=== PATIENT | female | born 1990 | race American Indian/Alaskan Native ===

== ENCOUNTER 2016-10-19 05:36 | Emergency (ER) | payer MEDICARE ==
[2016-10-19 10:13] LABS: Basophils % (Auto) 0.6 % (0.0-1.8); Eosinophils % (Auto) 2.4 % (0.0-4.3); Hematocrit 40.4 % (30.3-42.9); Hemoglobin 13.5 gm/dl (10.1-14.3); Mean Corpuscular HGB Conc 34 % (30-34); Mean Corpuscular Hemoglobin 28 pg (28-32); Mean Corpuscular Volume 82 fl (79-97); Platelet Count 264 K/mm3 (140-440); Red Blood Count 4.91 M/mm3 (3.65-5.03); Red Cell Distribution Width 13.5 % (13.2-15.2); White Blood Count 7.1 K/mm3 (4.5-11.0)
[2016-10-19 10:20] LABS: Bilirubin,Urine NEG (Negative); Blood,Urine LG (Negative); Ketones,Urine 20 mg/dL (Negative); Leukocyte Esterase,Urine NEG (Negative); Mucus,Urine FEW /HPF; Nitrite,Urine NEG (Negative); Protein,Urine <15 mg/dL mg/dL (Negative); WBC,Urine < 1.0 /HPF (0.0-6.0)
[2016-10-19 10:42] LABS: Alanine Aminotransferase 11 units/L (7-56); Albumin/Globulin Ratio 1.1 %; Alkaline Phosphatase 75 units/L (35-129); Amylase 60 units/L (27-131); Anion Gap 17 mmol/L; BUN/Creatinine Ratio 11.66; Bilirubin,Total 0.5 mg/dL (0.1-1.2); Blood Urea Nitrogen 7 mg/dL (7-17); Carbon Dioxide 25 mmol/L (22-30); Chloride 98.7 mmol/L (98-107); Glucose 97 mg/dL (65-100); Lipase 21 units/L (13-60); Sodium 137 mmol/L (137-145); Total Protein 7.8 g/dL (6.3-8.2)
[2016-10-19 10:46] LABS: Bilirubin,Direct < 0.2 mg/dL (0-0.2); Bilirubin,Indirect 0.3 mg/dL
--- NOTE | 2016-10-19 10:50 | Ultrasound Report ---
Sonogram right upper quadrant: History: Right upper quadrant pain. Findings Aortic diameter 1.3 cm. No aneurysm. Normal liver. Normal gallbladder. Gallbladder wall thickness 1.2 mm. Common bile duct diameter 4.5 mm. No intrahepatic duct dilatation. Right kidney 10.1 x 3.8 x 4.8 cm. Cortical thickness 1 cm. Left kidney 10.8 x 4.9 x 5.2 cm. Cortical thickness 1.8 cm. Spleen 8.4 cm. Pancreas not visualized. Impression: Essentially negative sonogram right upper quadrant
--- NOTE | 2016-10-19 11:35 | XRay Report ---
Chest 2 views: History: Chest pain. Findings: Normal cardiomediastinal silhouette. Trachea is midline. No consolidation, pneumothorax or pleural effusion. Impression: No acute cardiopulmonary findings.
[2016-10-19] MEDS ORDERED: XYLOCAINE 1% MPF 5 mL INFILTRATI ONE (12:01)
[2016-10-19] MEDS ORDERED: ROCEPHIN IM ONE (12:01)
--- NOTE | 2016-10-19 12:06 | Emergency Department Report ---
ED Abdominal Pain HPI - General Chief Complaint: Pain General Stated Complaint: LUNG PAIN Time Seen by Provider: 10/19/16 09:05 Source: patient Mode of arrival: Ambulatory Limitations: No Limitations - History of Present Illness Severity scale (0 -10): 9 - Related Data Previous Rx's Medication Instructions Recorded Last Taken Type Doxycycline [Vibramycin CAP] 100 mg PO Q12HR #28 capsule 10/19/16 Unknown Rx Famotidine [Pepcid] 20 mg PO BID #60 tablet 10/19/16 Unknown Rx Allergies Allergy/AdvReac Type Severity Reaction Status Date / Time No Known Allergies Allergy Unverified 10/19/16 05:42 ED Review of Systems ROS: Stated complaint: LUNG PAIN Other details as noted in HPI ED Past Medical Hx - Past Medical History Previous Medical History?: No - Surgical History Past Surgical History?: No - Social History Smoking Status: Current Every Day Smoker Substance Use Type: None - Medications Home Medications: Home Medications Medication Instructions Recorded Confirmed Last Taken Type Doxycycline [Vibramycin CAP] 100 mg PO Q12HR #28 capsule 10/19/16 Unknown Rx Famotidine [Pepcid] 20 mg PO BID #60 tablet 10/19/16 Unknown Rx ED Physical Exam - General Limitations: No Limitations ED Course Vital Signs 10/19/16 10/19/16 05:42 09:47 Temperature 97.9 F 98.1 F Pulse Rate 70 79 Respiratory 18 18 Rate Blood Pressure 127/86 Blood Pressure 135/97 [Left] O2 Sat by Pulse 99 100 Oximetry ED Medical Decision Making - Lab Data Result diagrams: 10/19/16 09:45 10/19/16 09:45 Critical care attestation.: If time is entered above; I have spent that time in minutes in the direct care of this critically ill patient, excluding procedure time. ED Disposition Clinical Impression: Abdominal pain Qualifiers: Abdominal location: right upper quadrant Qualified Code(s): R10.11 - Right upper quadrant pain Disposition: DISCHARGED TO HOME OR SELFCARE Is pt being admited?: No Does the pt Need Aspirin: No Condition: Stable Instructions: Pelvic Inflammatory Disease (ED), Abdominal Pain (ED), Acute Abdominal Pain (ED), Gas and Bloating (ED) Prescriptions: Famotidine [Pepcid] 20 mg PO BID #60 tablet Doxycycline [Vibramycin CAP] 100 mg PO Q12HR #28 capsule Referrals: PRIMARY CARE, [Primary Care Provider] - 3-5 Days LEONILA DUMONT MD [Staff Physician] - 3-5 Days [facility] [Provider Group] - 3-5 Days Forms: Work/School Release Form(ED) Time of Disposition: 12:02
[2016-10-19 12:47] VITALS: BP 152/100
== END 2016-10-19 12:45 | disposition home or self-care (01) ==
LOC: ED 05:36
DX: R10.11 Right upper quadrant pain (principal); F17.200 Nicotine dependence, unspecified, uncomplicated
CPT/HCPCS: 36415; 71020; 76700; 80048; 80074; 81001; 81025; 82140; 82150; 83690; 84484; 85025; 85610; 96372; 99284; J0696

== ENCOUNTER 2020-01-09 06:13 | Emergency (ER) | payer SELFPAY ==
[2020-01-09 06:21] VITALS: BP 140/103
[2020-01-09 06:53] LABS: Bilirubin,Urine NEG (Negative); Blood,Urine NEG (Negative); Color,Urine Yellow (Yellow); Mucus,Urine FEW /HPF; Protein,Urine <15 mg/dL mg/dL (Negative); Urobilinogen,Urine < 2.0 mg/dL (<2.0)
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
[2020-01-09 07:17] LABS: Basophils % (Auto) 0.8 % (0.0-1.8); Eosinophils # (Auto) 0.2 K/mm3 (0.0-0.4); Eosinophils % (Auto) 4.4 % (0.0-4.3); Hematocrit 39.9 % (30.3-42.9); Hemoglobin 13.3 gm/dl (10.1-14.3); Lymphocytes # (Auto) 1.5 K/mm3 (1.2-5.4); Mean Corpuscular HGB Conc 33 % (30-34); Mean Corpuscular Volume 85 fl (79-97); Monocytes # (Auto) 0.3 K/mm3 (0.0-0.8); Monocytes % (Auto) 6.8 % (0.0-7.3); Platelet Count 259 K/mm3 (140-440); Red Blood Count 4.72 M/mm3 (3.65-5.03); Red Cell Distribution Width 14.6 % (13.2-15.2)
[2020-01-09 07:43] LABS: Alanine Aminotransferase 11 units/L (7-56); Albumin 3.9 g/dL (3.9-5); BUN/Creatinine Ratio 16; Blood Urea Nitrogen 11 mg/dL (7-17); Calcium 8.6 mg/dL (8.4-10.2); Hemolysis Index 10
[2020-01-09] MEDS ORDERED: ONDANSETRON 4 MG ODT TAB PO ONE (08:08)
--- NOTE | 2020-01-09 10:13 | XRay Report ---
ABDOMEN 1 VIEW INDICATION / CLINICAL INFORMATION: abd pain. COMPARISON: None available. FINDINGS: TUBES / LINES: None. BOWEL GAS PATTERN: No significant abnormality. ADDITIONAL FINDINGS: An IUD is in place. IMPRESSION: 1. No acute abnormality identified. Signer Name: Lizzeth Segura MD Signed: 01/09/2020 10:09 AM Workstation Name: [id number]
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
== END 2020-01-09 10:35 | disposition home or self-care (01) ==
LOC: ED 06:13
DX: S00.10XA Contusion of unspecified eyelid and periocular area, initial encounter (principal); R10.11 Right upper quadrant pain; R10.31 Right lower quadrant pain; R03.0 Elevated blood-pressure reading, without diagnosis of hypertension; Z79.899 Other long term (current) drug therapy; X58.XXXA Exposure to other specified factors, initial encounter; Y93.89 Activity, other specified; Y92.89 Other specified places as the place of occurrence of the external cause; Y99.8 Other external cause status
CPT/HCPCS: 36415; 74018; 80053; 81001; 83690; 84703; 85025; Q0162